=== PATIENT | male | born 1955 | race Hispanic/Latino ===

== ENCOUNTER → 2025-08-30 | Outpatient (CLI) | payer OTHER ==
--- NOTE | 2025-09-02 05:59 | HMCIMG ---
EXAMINATION: NONCONTRAST MRI OF THE LEFT SHOULDER. CLINICAL HISTORY: Left shoulder pain COMPARISON: None TECHNIQUE: Multiplanar, multisequence MR images of the left shoulder are submitted (no sagittal images available). FINDINGS: The coracoclavicular ligament is intact. The acromioclavicular joint is normal. No periosseous synovial thickening. There is no subacromial-subdeltoid bursitis. The peritendinous soft tissues are normal. The supraspinatus and infraspinatus tendons demonstrate a full thickness tear measuring 4 cm in the anterior posterior dimension with 4.5 cm retraction of the torn ends up to the level of the glenohumeral joint. The subscapularis tendon exhibits mild tendinosis without tear or significant retraction. The teres minor tendon is intact without evidence of tendinopathy or tear. The long head of the biceps tendon shows moderate tendinosis as it traverses the bicipital groove with surrounding mild fluid. Bicipital anchor is intact. There is normal bone marrow signal within the shoulder girdle without fracture, avascular necrosis, or osteomyelitis. The labrum is normal in bulk in signal. The glenohumeral joint is intact. The soft tissues are otherwise normal. IMPRESSION: 1. Full thickness tear of supraspinatus and infraspinatus tendons measuring 4 cm with 4.5 cm retraction. 2. Moderate tendinosis of the long head of the biceps tendon with surrounding mild fluid. 3. Mild subscapularis insertional tendinosis. /Mills
== END | disposition home or self-care (01) ==
LOC: RAH 14:31
PROVIDERS: ATTEND Family Medicine
DX: S46.812D Strain of other muscles, fascia and tendons at shoulder and upper arm level, left arm, subsequent encounter (principal); M75.122 Complete rotator cuff tear or rupture of left shoulder, not specified as traumatic; M75.82 Other shoulder lesions, left shoulder; X58.XXXD Exposure to other specified factors, subsequent encounter
CPT/HCPCS: 73221